=== PATIENT | female | born 1950 | race Caucasian/White ===

== ENCOUNTER 2019-10-19 01:17 | Emergency (ER) | payer MEDICARE ==
[~2019-10-19] VITALS: Ht 157.5 cm; Wt 63.5 kg
[~2019-10-19 01:17] MED LIST: ALBU90OI INH; AZIT250 PO; BENZ100A PO; CODGUAEL PO; Monodox100 MG PO; Nystatin15 GM TOP; PRED20 PO; Prednisone10 MG PO; Prednisone20 MG PO; SPACE CHAMBER1 EACH MC; SPACER IH; Zithromax250 MG PO
[2019-10-20] MEDS ORDERED: Omeprazole20 M1 PO ×2 (13:50)
== END 2019-10-19 03:12 | disposition home or self-care (01) ==
LOC: ER 01:17
DX: T18.128A Food in esophagus causing other injury, initial encounter (principal); F17.210 Nicotine dependence, cigarettes, uncomplicated
CPT/HCPCS: 96372; 99283-25; J1610

== ENCOUNTER 2019-10-19 15:24 | Observation (INO) | payer MEDICARE ==
[~2019-10-19] VITALS: Ht 157.5 cm; Wt 63.5 kg
--- NOTE | 2019-10-19 17:32 | NUR ---
RECEIVED PT FROM ER [facility]IA [facility]. History, Chart, Medications and Allergies reviewed before start of procedure. Lungs clear T/O to Auscultation. Patient States Post-Procedure ride home has been arranged.
--- NOTE | 2019-10-19 18:01 | NUR ---
10/19/19 180 ERICA MOYER SPOKE VIA PHONE WITH DR. WALLACE TO CONSULT REGARDING DEEP SEDATION. DR. WALLACE STATED IS WAS OKAY TO PROCEED WITH DEEP SEDATION WITH PROPOFOL.
--- NOTE | 2019-10-19 19:28 | NUR ---
OF NOW, 7 NICHOLS NETS HAVE BEEN USED FOR THE PROCEDURE. THE REASON FOR THIS NUMBER IS THAT THE NETS KEEP MALFUNCTIONING AND BREAKING.
--- NOTE | 2019-10-19 20:24 | NUR ---
PT IS BEING ADMITTED.
--- NOTE | 2019-10-19 20:46 | NUR ---
PT'S NEPHEW JOSE FRANCISCO NOTIFIED VIA PHONE REGARDING ADMISSION. PT WANTS HER KEYS GIVEN TO HIM SO HE CAN DRIVE HOME. PT STATES THERE IS NO PHONE AT HER HOME SO A NOTE WAS DICTATED TO NATALIA MORRIS FOR THE PT'S FAMILY. THE NOTE AND PT'S KEYS WERE TAKEN TO JOSE FRANCISCO IN THE PARKING LOT REQUESTED BY THE PT. THE HOSPITAL'S PHONE NUMBER WAS WRITTEN ON THE NOTE FOR THE FAMILY TO REACH THE PT TOMORROW.
--- NOTE | 2019-10-19 21:20 | NUR ---
ADMIT ORDERS PT ARRIVES FROM DAY SURGERY WITH NO WRITTEN OR ELECTRONIC ORDERS. NATALIA ASCENCIO ADVISES THAT TELEPHONE ORDERS WERE RECEIVED FROM DR. LANDAVERDE BUT THAT SHE NEEDED ASSISTANCE WITH ENTERING THEM INTO THE COMPUTER. PROVIDED ASSISTANCE AND NOTIFIED THE ER OF NEED TO PLACE PATIENT IN THE COMPUTER FOR FURTHER ADMISSION PROCESS.
--- NOTE | 2019-10-19 21:31 | NUR ---
PT SAFELY TRANSFERED TO PCU 1. RN AND RESPIRATORY THERAPY THERE ON ARRIVAL.
--- NOTE | 2019-10-19 23:36 | NUR ---
Admission/Assumed care Bedside report recieved from NATALIA Rodriguez from day surgery with patient arrival at 2111. Pt on 12L NRB at time of arrival, flow rate increased to 15L NRB at arrival, RT at bedside. Tachypnea in 30's noted, oxygenation at 91%. Pt appears lethargic but awake and able to be alert for converstaion. She does fall asleep frequently. Per report this is pt's "baseline". She is oriented, following all commands, VSS. Pt not tolerating NRB d/t clausterphobia. RT education provided to pt regarding need for oxygen support via BIPAP/CPAP. Pt agrees to airvo and is tolerating well. Albuteral Neb provided by RT per orders. Pt RR normalizing, breathing deeply and with even chest rise. Denies dyspnea now stating "i'm back to normal and I want to go home". Pt educated on amount of oxygen support needed to maintain oxygen levels in 90's. Hospitalist at bedside at approx 2330 for admission. Monitoring respiratory status closely, no acute concerns to note at this time. See admission assessment for detailed systems assessment.
--- NOTE | 2019-10-20 00:08 | NUR ---
UPDATE Pt shaking in bed, complaining of feeling "freezing", heating pad placed for pain on back at admission. Temperature 102.3 oral and temporal. Call placed to provider for orders. cooling measures in place at this time while waiting for provider to call back.
[2019-10-20 04:41] LABS: BASOPHILS ABSOLUTE AUTO 0.04 K/mm3 (0.00-0.23); BASOPHILS PERCENT AUTO 0 % (0-2); EOSINOPHILS PERCENT AUTO 0 % (0-6); Hematocrit 42.7 % (33.0-51.0); Hemoglobin 13.9 g/dL (11.5-16.0); IMMATURE GRAN ABSOLUTE AUTO 0.04 K/mm3 (0.00-0.10); IMMATURE GRAN PERCENT AUTO 0 % (0-1); LYMPHOCYTES ABSOLUTE AUTO 1.29 K/mm3 (0.84-5.20); LYMPHOCYTES PERCENT AUTO 9 % (21-46); MONOCYTES ABSOLUTE AUTO 0.93 K/mm3 (0.16-1.47); MONOCYTES PERCENT AUTO 7 % (4-13); Mean Corpuscular HGB 29.2 pg (26.0-34.0); Mean Corpuscular HGB Conc 32.6 g/dL (31.5-36.5); Mean Corpuscular Volume 90 fL (80-100); Mean Platelet Volume 9.6 fL (9.1-12.4); NEUTROPHILS ABSOLUTE AUTO 11.56 K/mm3 (1.96-9.15); NEUTROPHILS PERCENT AUTO 83 % (41-73); Platelet Count 268 K/mm3 (150-400); RDW Coefficient Variation 13.2 % (11.7-14.2); RDW Standard Deviation 43.8 fL (35.1-46.3); Red Blood Cell Count 4.76 M/mm3 (3.80-5.20); White Blood Cell Count 13.86 K/mm3 (4.00-11.30)
--- NOTE | 2019-10-20 04:48 | NUR ---
SHIFT SUMMARY Pt admitted to PCU 1 this shift. See admission note for details of pt condition upon admission. At 0000, pt with fever requiring cooling measures and tylenol UT administration to bring temp ultimately down to 98.8. After tylenol administration, pt able to sleep and upon waking from approx 2 hrs of rest, states "i feel like my head is clearer now", pt appears more alert, conversive, and comfortable. She is not complaining of pain as before and no longer shaking and sweating. ABx given per orders. BP noted to have steadily lowered this shift with SBP now 104; mentation intact and improved from initial assessment at admission, breathing at 22 BPM at this time and remains on Airvo at 40 LPM. Pt with wet, moist, productive cough. She states "this is normal for me", sputum production is thin, clear with some brown and red tinged spots. Pt has used bedpan this shift d/t respiratory effort and weakness, encouraging BSC for dayshift. Shes is strict NPO per orders.
[2019-10-20 05:06] LABS: Alanine Aminotransfer (ALT/SGP 16 U/L (12-78); Albumin, Blood 3.1 g/dL (3.4-5.0); Alk Phos 83 U/L (50-136); Anion Gap 6 mmol/L (6-16); Aspartate Aminotrans (AST/SGOT 7 U/L (12-37); Bilirubin, Total 1.2 mg/dL (0.1-1.0); Blood Urea Nitrogen 13 mg/dL (8-24); Bun/Creatinine Ratio 15.2 (12.0-20.0); CO2, Blood 30 mmol/L (21-32); Calcium, Blood 8.1 mg/dL (8.5-10.1); Chloride, Blood 106 mmol/L (98-108); Creatinine, Blood 0.86 mg/dL (0.40-1.00); Globulin, Blood 3.1 g/dL (2.2-4.0); Glomerular Filtration Rate >60 (60-); Glucose, Blood 88 mg/dL (70-99); Potassium, Blood 3.2 mmol/L (3.5-5.5); Sodium, Blood 142 mmol/L (136-145); Total Protein, Blood 6.2 g/dL (6.4-8.2)
[2019-10-20] MEDS ORDERED: Omeprazole20 M1 PO ×2 (13:50)
--- NOTE | 2019-10-20 15:18 | NUR ---
PT HAS BEEN DISCHARGED TO HOME, SHE IS NOT TOLERATING HER IV K+, CALL TO AND RECIEVED ORDER FOR ORAL. SHE TOOK THAT. WENT OVER PT INSTRUCTIONS WITH HER, SHE VERBALIZED UNDERSTANDING, IV REMOVED INTACT, LEFT VIA WHEELCHAIR WITH STUDENT NURSE IN ATTENDENCE.
== END 2019-10-20 15:21 | disposition home or self-care (01) ==
LOC: ER 15:24 → PCU 15:25 → ER 17:10 → PCU 21:37
PROVIDERS: Student in an Organized Health Care Education/Training Program; ADMIT Internal Medicine
PROC: 0DC58ZZ Extirpation of Matter from Esophagus, Via Natural or Artificial Opening Endoscopic (ICD-10-PCS; principal; 2019-10-19 17:30)
DX: T18.128A Food in esophagus causing other injury, initial encounter (principal); J96.01 Acute respiratory failure with hypoxia; K20.9 Esophagitis, unspecified; X58.XXXA Exposure to other specified factors, initial encounter; J43.9 Emphysema, unspecified; F17.210 Nicotine dependence, cigarettes, uncomplicated
CPT/HCPCS: 36415; 80053; 85025; 94640; 99283; A9270; C9113; J1610; J1650; J2405; J2704; J3480; J7120

== ENCOUNTER → 2020-03-25 | Outpatient (CLI) | payer MEDICARE, OTHER ==
[~2020-03-25] MED LIST changes: +Omeprazole20 M1 PO
== END | disposition home or self-care (01) ==
LOC: PLD 16:13 → LAB SHORT 16:13
DX: L60.2 Onychogryphosis (principal); B35.1 Tinea unguium
CPT/HCPCS: 88305; 88312

== ENCOUNTER → 2020-03-25 | Outpatient (CLI) | payer MEDICARE, OTHER | LOC: LAB 15:07 → LAB SHORT 15:07 | DX: B35.3 Tinea pedis (principal) | CPT/HCPCS: 87210 ==

== ENCOUNTER 2021-06-09 20:25 | Emergency (ER) | payer OTHER ==
[~2021-06-09] VITALS: Ht 157.5 cm; Wt 97.5 kg
[2021-06-09 21:22] LABS: BASOPHILS PERCENT AUTO 1 % (0-2); EOSINOPHILS ABSOLUTE AUTO 0.28 K/mm3 (0.00-0.68); EOSINOPHILS PERCENT AUTO 2 % (0-6); Hematocrit 47.1 % (33.0-51.0); Hemoglobin 15.6 g/dL (11.5-16.0); IMMATURE GRAN ABSOLUTE AUTO 0.09 K/mm3 (0.00-0.10); IMMATURE GRAN PERCENT AUTO 1 % (0-1); LYMPHOCYTES ABSOLUTE AUTO 3.76 K/mm3 (0.84-5.20); LYMPHOCYTES PERCENT AUTO 27 % (21-46); MONOCYTES ABSOLUTE AUTO 0.94 K/mm3 (0.16-1.47); MONOCYTES PERCENT AUTO 7 % (4-13); Mean Corpuscular HGB 28.6 pg (26.0-34.0); Mean Corpuscular HGB Conc 33.1 g/dL (31.5-36.5); Mean Corpuscular Volume 86 fL (80-100); Mean Platelet Volume 9.3 fL (9.1-12.4); NEUTROPHILS ABSOLUTE AUTO 8.56 K/mm3 (1.96-9.15); NEUTROPHILS PERCENT AUTO 62 % (41-73); Platelet Count 425 K/mm3 (150-400); RDW Coefficient Variation 13.6 % (11.7-14.2); RDW Standard Deviation 42.8 fL (35.1-46.3); Red Blood Cell Count 5.46 M/mm3 (3.80-5.20); White Blood Cell Count 13.73 K/mm3 (4.00-11.30)
[2021-06-09 21:32] LABS: Bun/Creatinine Ratio 17.9 (12.0-20.0); Calcium, Blood 9.2 mg/dL (8.5-10.1); Creatinine, Blood 0.95 mg/dL (0.40-1.00); Magnesium, Blood 2.3 mg/dL (1.6-2.4); Potassium, Blood 3.8 mmol/L (3.5-5.5)
[2021-06-09] MEDS ORDERED: VALIUM PO (22:16)
== END 2021-06-09 22:30 | disposition home or self-care (01) ==
LOC: ER 20:25
PROVIDERS: Emergency Medicine
DX: M62.838 Other muscle spasm (principal); T38.3X5A Adverse effect of insulin and oral hypoglycemic [antidiabetic] drugs, initial encounter; J43.9 Emphysema, unspecified; E11.9 Type 2 diabetes mellitus without complications; I50.9 Heart failure, unspecified; F17.210 Nicotine dependence, cigarettes, uncomplicated; Z79.899 Other long term (current) drug therapy
CPT/HCPCS: 80048; 83735; 85025; A9270

== ENCOUNTER 2022-06-20 21:22 | Emergency (ER) | payer OTHER ==
[~2022-06-20] VITALS: Ht 157.5 cm; Wt 90.7 kg
[~2022-06-20 21:22] MED LIST changes: +ACET500 PO; +BREZTRI AEROS10.7 GM; +DIAZEPAM2 M2 PO; +FUROSEMIDE40 MG PO; +IBUP400 PO; +JARDIANCE10 MG PO; +Potassium Chlo20 ME1 PO; +VALIUM PO; +Ventolin/Prove6.7 GM
[2022-06-20 21:47] LABS: BASOPHILS ABSOLUTE AUTO 0.11 K/mm3 (0.00-0.23); BASOPHILS PERCENT AUTO 1 % (0-2); EOSINOPHILS ABSOLUTE AUTO 0.19 K/mm3 (0.00-0.68); EOSINOPHILS PERCENT AUTO 2 % (0-6); Hematocrit 44.8 % (33.0-51.0); Hemoglobin 15.2 g/dL (11.5-16.0); IMMATURE GRAN ABSOLUTE AUTO 0.07 K/mm3 (0.00-0.10); IMMATURE GRAN PERCENT AUTO 1 % (0-1); LYMPHOCYTES ABSOLUTE AUTO 4.55 K/mm3 (0.84-5.20); LYMPHOCYTES PERCENT AUTO 39 % (21-46); MONOCYTES ABSOLUTE AUTO 0.82 K/mm3 (0.16-1.47); MONOCYTES PERCENT AUTO 7 % (4-13); Mean Corpuscular HGB 30.1 pg (26.0-34.0); Mean Corpuscular HGB Conc 33.9 g/dL (31.5-36.5); Mean Corpuscular Volume 89 fL (80-100); NEUTROPHILS ABSOLUTE AUTO 5.88 K/mm3 (1.96-9.15); NEUTROPHILS PERCENT AUTO 51 % (41-73); Platelet Count 338 K/mm3 (150-400); RDW Coefficient Variation 14.7 % (11.7-14.2); RDW Standard Deviation 48.4 fL (35.1-46.3); Red Blood Cell Count 5.05 M/mm3 (3.80-5.20); White Blood Cell Count 11.62 K/mm3 (4.00-11.30)
[2022-06-20 22:07] LABS: Albumin, Blood 3.2 g/dL (3.4-5.0); Albumin/Globulin Ratio 0.9 (0.8-1.8); Bilirubin, Total 0.3 mg/dL (0.1-1.0); Bun/Creatinine Ratio 16.5 (12.0-20.0); Calcium, Blood 8.8 mg/dL (8.5-10.1); Creatinine, Blood 1.09 mg/dL (0.40-1.00); Globulin, Blood 3.7 g/dL (2.2-4.0); Potassium, Blood 3.8 mmol/L (3.5-5.5); Total Protein, Blood 6.9 g/dL (6.4-8.2)
[2022-06-20] MEDS ORDERED: ONDA4 PO (23:21)
[2022-06-20] MEDS ORDERED: Percocet 5-3251 EACH PO (23:22)
[2022-06-20] MEDS ORDERED: PERCOCET 10-321 EA10 PO (23:26)
== END 2022-06-20 23:32 | disposition home or self-care (01) ==
LOC: ER 21:22
PROVIDERS: Emergency Medicine
DX: K80.50 Calculus of bile duct without cholangitis or cholecystitis without obstruction (principal); J43.9 Emphysema, unspecified; I50.9 Heart failure, unspecified; F17.210 Nicotine dependence, cigarettes, uncomplicated; Z88.8 Allergy status to other drugs, medicaments and biological substances; Z79.899 Other long term (current) drug therapy
CPT/HCPCS: 36415; 71045; 76705; 80053; 83690; 84484; 85025; 93005; 93010; 94640; 94664; A9270; J2270; J2405

== ENCOUNTER 2023-02-04 18:34 | Emergency (ER) | payer OTHER ==
[~2023-02-04] VITALS: Ht 157.5 cm; Wt 95.2 kg
[~2023-02-04 18:34] MED LIST changes: +ONDA4 PO; +PERCOCET 10-321 EA10 PO; +Percocet 5-3251 EACH PO
[2023-02-04 19:16] VITALS: BP 119/71
== END 2023-02-04 21:03 | disposition home or self-care (01) ==
LOC: ER 18:34
DX: I50.9 Heart failure, unspecified (principal); R60.0 Localized edema; M54.30 Sciatica, unspecified side; Z88.8 Allergy status to other drugs, medicaments and biological substances; Z79.899 Other long term (current) drug therapy; J43.9 Emphysema, unspecified; E11.9 Type 2 diabetes mellitus without complications; F17.210 Nicotine dependence, cigarettes, uncomplicated
CPT/HCPCS: 96372; 99283-25; J1885

== ENCOUNTER → 2023-03-26 | Outpatient (CLI) | payer OTHER ==
[2023-03-26 17:32] LABS: Anion Gap 5 mmol/L (6-16); Blood Urea Nitrogen 13 mg/dL (8-24); Bun/Creatinine Ratio 13.6 (12.0-20.0); CHOL/HDL RATIO 4.3; CO2, Blood 30 mmol/L (21-32); Calcium, Blood 9.4 mg/dL (8.5-10.1); Chloride, Blood 102 mmol/L (98-108); Cholesterol 249 mg/dL (50-200); Creatinine, Blood 0.95 mg/dL (0.40-1.00); Glomerular Filtration Rate 64 (60-); Glucose, Blood 103 mg/dL (70-99); HDL Cholesterol 58 mg/dL (>39); LDL/HDL RATIO 2.6; Low Density Lipoprotein Chol 151 mg/dL (0-110); Potassium, Blood 3.1 mmol/L (3.5-5.5); Sodium, Blood 137 mmol/L (136-145); Triglycerides 202 mg/dL (30-160); Very Low Density Lipoprot Chol 40 mg/dL (6-32)
== END | disposition home or self-care (01) ==
LOC: LAB SHORT 15:51 → LAB 15:51
PROVIDERS: Nurse Practitioner Family
DX: E11.42 Type 2 diabetes mellitus with diabetic polyneuropathy (principal); E11.22 Type 2 diabetes mellitus with diabetic chronic kidney disease; E11.51 Type 2 diabetes mellitus with diabetic peripheral angiopathy without gangrene; E11.69 Type 2 diabetes mellitus with other specified complication
CPT/HCPCS: 80048; 80061

== ENCOUNTER 2023-04-07 06:25 | Day surgery (SDC) | payer OTHER ==
[2023-04-07] VITALS (7 sets, daily range): BP systolic 108–166; BP diastolic 69–108
[~2023-04-07] VITALS: Ht 157.5 cm; Wt 102.0 kg
[~2023-04-07 06:25] MED LIST changes: +ALDACTONE100 MG PO
[2023-04-07] MEDS ORDERED: Crestor20 MG PO (08:46)
--- NOTE | 2023-04-07 10:00 | NUR ---
4CC OF AIR REMOVED FROM R RADIAL TR BAND. BLEEDING NOTED. REINFLATED TR BAND. NO LONGER BLEEDING OR HEMATOMA. VSS. NADN. CALL LIGHT WITHIN REACH.
--- NOTE | 2023-04-07 11:16 | NUR ---
AIR FULLY DEFLATED FROM R RADIAL TR BAND. NO BLEEDING OR HEMATOMA NOTED. VSS. PT AND CAREGIVER, CASSANDRA VERABLIZES UNDERSTANDING WRITTEN AND VERBAL INSTRUCTIONS. DENIES QUESTIONS.
--- NOTE | 2023-04-07 11:31 | NUR ---
PT DRESSES SELF WITH MINIMAL ASSISTANCE. TOLERATES WELL. VSS. NADN. PT TR BAND REMOVED. DOT DRESSING, SPLINT, & SLING APPLIED. IV DC'D. CATH INTACT. PRESSURE DSG APPLIED. NO BLEEDING NOTED. PT WILL DC TO HOME VIA WC BY CAREGIVER
[2023-04-07] MEDS ORDERED: Norco 5-325 Ta1 EACH PO (20:50)
== END 2023-04-07 11:40 | disposition home or self-care (01) ==
LOC: MHTC 06:25
DX: Z01.810 Encounter for preprocedural cardiovascular examination (principal); I25.10 Atherosclerotic heart disease of native coronary artery without angina pectoris; I25.82 Chronic total occlusion of coronary artery; I35.0 Nonrheumatic aortic (valve) stenosis; I13.0 Hypertensive heart and chronic kidney disease with heart failure and stage 1 through stage 4 chronic kidney disease, or unspecified chronic kidney disease; E11.22 Type 2 diabetes mellitus with diabetic chronic kidney disease; N18.31 Chronic kidney disease, stage 3a; I50.32 Chronic diastolic (congestive) heart failure; E66.01 Morbid (severe) obesity due to excess calories; Z68.41 Body mass index [BMI] 40.0-44.9, adult; J43.9 Emphysema, unspecified; Z88.8 Allergy status to other drugs, medicaments and biological substances; R10.11 Right upper quadrant pain; E11.9 Type 2 diabetes mellitus without complications; F17.210 Nicotine dependence, cigarettes, uncomplicated; Z79.899 Other long term (current) drug therapy
CPT/HCPCS: 76937; 80053; 83690; 85025; 93454; 96374; 99152; 99153; 99284-25; A9270; C1769; C1887; C1894; J1644; J1885; J2250; J3010; J7030; J7050; Q9967

== ENCOUNTER 2023-04-08 00:59 | Emergency (ER) | payer OTHER ==
[~2023-04-08] VITALS: Ht 157.5 cm; Wt 90.7 kg
[~2023-04-08 00:59] MED LIST changes: +Crestor20 MG PO; +Norco 5-325 Ta1 EACH PO
[2023-04-08 01:30] VITALS: BP 124/67
== END 2023-04-08 04:40 | disposition home or self-care (01) ==
LOC: ER 00:59
DX: R10.11 Right upper quadrant pain (principal); J43.9 Emphysema, unspecified; E11.9 Type 2 diabetes mellitus without complications; I50.9 Heart failure, unspecified; F17.210 Nicotine dependence, cigarettes, uncomplicated
CPT/HCPCS: 93005; 93010; 99284-25; A9270

== ENCOUNTER → 2023-09-02 | Outpatient (CLI) | payer OTHER ==
[~2023-09-02] MED LIST changes: +ALBU2.5V5 INH; +DERMACINRX LID1 EACH TOP; +Robaxin750 MG PO
[2023-09-02 18:05] LABS: Bun/Creatinine Ratio 13.8 (12.0-20.0); Calcium, Blood 9.3 mg/dL (8.5-10.1); Creatinine, Blood 0.87 mg/dL (0.40-1.00); Potassium, Blood 3.4 mmol/L (3.5-5.5)
== END ==
LOC: LAB 16:16 → LAB SHORT 16:16
PROVIDERS: Nurse Practitioner Family
DX: R60.9 Edema, unspecified (principal)
CPT/HCPCS: 80048

== ENCOUNTER 2023-09-10 12:01 | Emergency (ER) | payer OTHER ==
[~2023-09-10] VITALS: Ht 165.1 cm; Wt 72.6 kg
[~2023-09-10 12:01] MED LIST changes: -ALBU2.5V5 INH; -DERMACINRX LID1 EACH TOP; -Robaxin750 MG PO
[2023-09-10] MEDS ORDERED: Ipratropium/Albuterol SulF 2.5-0.5MG/3 ML Amp INH ONE (12:20)
[2023-09-10] MEDS ORDERED: FentaNYL Citrate 50 MCG/ML 2 ML Injection IV ONE (13:00)
[2023-09-10 13:06] LABS: BASOPHILS ABSOLUTE AUTO 0.12 K/mm3 (0.00-0.23); BASOPHILS PERCENT AUTO 1 % (0-2); EOSINOPHILS ABSOLUTE AUTO 0.27 K/mm3 (0.00-0.68); EOSINOPHILS PERCENT AUTO 2 % (0-6); Hemoglobin 16.4 g/dL (11.5-16.0); IMMATURE GRAN ABSOLUTE AUTO 0.09 K/mm3 (0.00-0.10); IMMATURE GRAN PERCENT AUTO 1 % (0-1); LYMPHOCYTES ABSOLUTE AUTO 3.45 K/mm3 (0.84-5.20); LYMPHOCYTES PERCENT AUTO 28 % (21-46); MONOCYTES ABSOLUTE AUTO 1.04 K/mm3 (0.16-1.47); MONOCYTES PERCENT AUTO 9 % (4-13); Mean Corpuscular HGB 29.1 pg (26.0-34.0); Mean Corpuscular HGB Conc 33.5 g/dL (31.5-36.5); Mean Corpuscular Volume 87 fL (80-100); Mean Platelet Volume 8.8 fL (9.1-12.4); NEUTROPHILS ABSOLUTE AUTO 7.25 K/mm3 (1.96-9.15); NEUTROPHILS PERCENT AUTO 59 % (41-73); Platelet Count 392 K/mm3 (150-400); RDW Coefficient Variation 14.2 % (11.7-14.2); RDW Standard Deviation 45.6 fL (35.1-46.3); Red Blood Cell Count 5.63 M/mm3 (3.80-5.20); White Blood Cell Count 12.22 K/mm3 (4.00-11.30)
[2023-09-10 13:28] VITALS: BP 145/115
[2023-09-10 13:28] LABS: Albumin, Blood 3.8 g/dL (3.4-5.0); Albumin/Globulin Ratio 0.9 (0.8-1.8); Bilirubin, Total 0.7 mg/dL (0.1-1.0); Bun/Creatinine Ratio 17.9 (12.0-20.0); Calcium, Blood 9.7 mg/dL (8.5-10.1); Creatinine, Blood 0.84 mg/dL (0.40-1.00); Globulin, Blood 4.2 g/dL (2.2-4.0); Magnesium, Blood 2.5 mg/dL (1.6-2.4); Potassium, Blood 3.8 mmol/L (3.5-5.5)
[2023-09-10 13:31] LABS: Influenza A, PCR NEGATIVE (NEGATIVE); Influenza B, PCR NEGATIVE (NEGATIVE); Resp Syncytial Virus, PCR NEGATIVE (NEGATIVE); SARS-Cov-2 (COVID-19) PCR, MMC NEGATIVE (NEGATIVE)
== END 2023-09-10 15:17 | disposition home or self-care (01) ==
LOC: ER 12:01
PROVIDERS: Physician Assistant
DX: J44.1 Chronic obstructive pulmonary disease with (acute) exacerbation (principal); F17.210 Nicotine dependence, cigarettes, uncomplicated; E11.9 Type 2 diabetes mellitus without complications; I50.9 Heart failure, unspecified; Z79.51 Long term (current) use of inhaled steroids; Z79.899 Other long term (current) drug therapy; Z88.8 Allergy status to other drugs, medicaments and biological substances
CPT/HCPCS: 0241U; 71046; 80053; 83735; 85025; 94640; 94664; J3010

== ENCOUNTER 2023-09-12 16:30 | Emergency (ER) | payer OTHER ==
[~2023-09-12] VITALS: Ht 165.1 cm; Wt 81.7 kg
[2023-09-12] MEDS ORDERED: Ketorolac Tromethamine 15mg Vial IV ONE (17:05)
[2023-09-12] MEDS ORDERED: Morphine Sulfate 10 MG/ML 1MLSYR IV ONE (17:05)
[2023-09-12] MEDS ORDERED: Lidocaine 4% 1 Patch TOP ONE (17:05)
[2023-09-12 17:33] LABS: BASOPHILS ABSOLUTE AUTO 0.11 K/mm3 (0.00-0.23); BASOPHILS PERCENT AUTO 1 % (0-2); EOSINOPHILS ABSOLUTE AUTO 0.18 K/mm3 (0.00-0.68); EOSINOPHILS PERCENT AUTO 1 % (0-6); Hematocrit 46.8 % (33.0-51.0); Hemoglobin 15.5 g/dL (11.5-16.0); IMMATURE GRAN ABSOLUTE AUTO 0.09 K/mm3 (0.00-0.10); IMMATURE GRAN PERCENT AUTO 1 % (0-1); LYMPHOCYTES ABSOLUTE AUTO 3.16 K/mm3 (0.84-5.20); LYMPHOCYTES PERCENT AUTO 20 % (21-46); MONOCYTES ABSOLUTE AUTO 1.05 K/mm3 (0.16-1.47); MONOCYTES PERCENT AUTO 7 % (4-13); Mean Corpuscular HGB 28.9 pg (26.0-34.0); Mean Corpuscular HGB Conc 33.1 g/dL (31.5-36.5); Mean Corpuscular Volume 87 fL (80-100); Mean Platelet Volume 9.5 fL (9.1-12.4); NEUTROPHILS ABSOLUTE AUTO 11.42 K/mm3 (1.96-9.15); NEUTROPHILS PERCENT AUTO 71 % (41-73); Platelet Count 362 K/mm3 (150-400); RDW Coefficient Variation 14.1 % (11.7-14.2); RDW Standard Deviation 45.1 fL (35.1-46.3); Red Blood Cell Count 5.37 M/mm3 (3.80-5.20); White Blood Cell Count 16.01 K/mm3 (4.00-11.30)
[2023-09-12 18:05] LABS: Albumin, Blood 3.6 g/dL (3.4-5.0); Albumin/Globulin Ratio 0.9 (0.8-1.8); Bilirubin, Total 0.6 mg/dL (0.1-1.0); Calcium, Blood 9.6 mg/dL (8.5-10.1); Creatinine, Blood 0.9 mg/dL (0.40-1.00); Globulin, Blood 4.1 g/dL (2.2-4.0); Potassium, Blood 3.4 mmol/L (3.5-5.5); Total Protein, Blood 7.7 g/dL (6.4-8.2)
[2023-09-12 18:09] LABS: Influenza A, PCR NEGATIVE (NEGATIVE); Influenza B, PCR NEGATIVE (NEGATIVE); Resp Syncytial Virus, PCR NEGATIVE (NEGATIVE); SARS-Cov-2 (COVID-19) PCR, MMC NEGATIVE (NEGATIVE)
[2023-09-12] MEDS ORDERED: MethylPREDNISolone Sod Succ 125 MG Vial IV ONE (18:45)
[2023-09-12] MEDS ORDERED: Albuterol 2.5 MG/3 ML VIAL INH SCH (18:50)
[2023-09-12] MEDS ORDERED: CefTRIAXone Sodium 1,000 MG in NS 100 ML IV ONE (18:50)
[2023-09-12 20:45] VITALS: BP 121/77
[2023-09-12 20:45] LABS: Source, Urine Clean Catch
[2023-09-12 20:52] LABS: Bilirubin, Urine Neg (Neg); Blood, Urine 2+ (Neg); Glucose Qualitative, Urine 4+ (Neg); Ketones, Urine Neg (Neg); Leukocyte Esterase, Urine Neg (Neg); Nitrite, Urine Neg (Neg); Protein, Urine Neg (Neg); Specific Gravity, Urine 1.015 (1.003-1.022); Urobilinogen, Urine NORM (Normal)
[2023-09-12 20:57] LABS: Appearance, Urine Clear (Clear); Color, Urine Yellow (P-Yellow)
[2023-09-12 21:00] LABS: Bacteria Rare /hpf; Red Blood Cells, Urine 0-2 /hpf (0-2); Squamous Epithelial Cells Rare /hpf (Few); White Blood Cells, Urine Not Seen /hpf (0-5)
[2023-09-12] MEDS ORDERED: Robaxin750 MG PO (21:14)
[2023-09-12] MEDS ORDERED: ALBU2.5V5 INH (21:14)
[2023-09-12] MEDS ORDERED: DERMACINRX LID1 EACH TOP (21:14)
== END 2023-09-12 21:39 | disposition home or self-care (01) ==
LOC: ER 16:30
PROVIDERS: Student in an Organized Health Care Education/Training Program
DX: M54.9 Dorsalgia, unspecified (principal); R09.02 Hypoxemia; J43.9 Emphysema, unspecified; Z87.891 Personal history of nicotine dependence; E11.9 Type 2 diabetes mellitus without complications; I50.9 Heart failure, unspecified; Z79.51 Long term (current) use of inhaled steroids; Z79.899 Other long term (current) drug therapy; Z88.5 Allergy status to narcotic agent; Z88.8 Allergy status to other drugs, medicaments and biological substances
CPT/HCPCS: 0241U; 71046; 80053; 81001; 85025; 94644; 94664; 96365-59; 96375-59; 99284-25; A9270; J0696; J1885; J2270; J2930

== ENCOUNTER → 2023-09-23 | Outpatient (CLI) | payer OTHER ==
[~2023-09-23] MED LIST changes: +ALBU2.5V5 INH; +DERMACINRX LID1 EACH TOP; +Robaxin750 MG PO
[2023-09-23 19:14] LABS: Bun/Creatinine Ratio 18.9 (12.0-20.0); Calcium, Blood 9.3 mg/dL (8.5-10.1); Creatinine, Blood 0.85 mg/dL (0.40-1.00); Potassium, Blood 3.2 mmol/L (3.5-5.5)
== END | disposition home or self-care (01) ==
LOC: LAB 17:20 → LAB SHORT 17:20
PROVIDERS: Nurse Practitioner Family
DX: I50.32 Chronic diastolic (congestive) heart failure (principal); E87.6 Hypokalemia
CPT/HCPCS: 80048

== ENCOUNTER 2023-11-16 13:56 | Emergency (ER) | payer OTHER ==
[~2023-11-16] VITALS: Ht 160 cm; Wt 93.9 kg
[~2023-11-16 13:56] MED LIST changes: +Magic Bullet10 MG PR; +Magnesium Citr296 ML PO
[2023-11-16] MEDS ORDERED: ASPI81CH PO (14:33)
[2023-11-16] MEDS ORDERED: NS 1,000 ML IV SCH (14:45)
[2023-11-16] MEDS ORDERED: Morphine Sulfate 4 MG/1 ML Injection IV ONE (14:45)
[2023-11-16] MEDS ORDERED: Ondansetron HCl 2 MG / ML 2ML Vial IV ONE (14:45)
[2023-11-16 15:02] LABS: BASOPHILS ABSOLUTE AUTO 0.13 K/mm3 (0.00-0.23); BASOPHILS PERCENT AUTO 1 % (0-2); EOSINOPHILS ABSOLUTE AUTO 0.16 K/mm3 (0.00-0.68); EOSINOPHILS PERCENT AUTO 1 % (0-6); Hematocrit 45.2 % (33.0-51.0); Hemoglobin 15.3 g/dL (11.5-16.0); IMMATURE GRAN ABSOLUTE AUTO 0.13 K/mm3 (0.00-0.10); IMMATURE GRAN PERCENT AUTO 1 % (0-1); LYMPHOCYTES ABSOLUTE AUTO 3.79 K/mm3 (0.84-5.20); LYMPHOCYTES PERCENT AUTO 29 % (21-46); MONOCYTES ABSOLUTE AUTO 0.91 K/mm3 (0.16-1.47); MONOCYTES PERCENT AUTO 7 % (4-13); Mean Corpuscular HGB 29.4 pg (26.0-34.0); Mean Corpuscular HGB Conc 33.8 g/dL (31.5-36.5); Mean Corpuscular Volume 87 fL (80-100); Mean Platelet Volume 9.3 fL (9.1-12.4); NEUTROPHILS ABSOLUTE AUTO 7.99 K/mm3 (1.96-9.15); NEUTROPHILS PERCENT AUTO 61 % (41-73); Platelet Count 428 K/mm3 (150-400); RDW Coefficient Variation 13.9 % (11.7-14.2); RDW Standard Deviation 43.6 fL (35.1-46.3); White Blood Cell Count 13.11 K/mm3 (4.00-11.30)
[2023-11-16] MEDS ORDERED: HYDROmorphone HCl/Pf 1MG SYR IV ONE ×2 (15:15→16:45)
[2023-11-16 15:22] LABS: Albumin, Blood 3.3 g/dL (3.4-5.0); Albumin/Globulin Ratio 0.8 (0.8-1.8); Bilirubin, Total 0.5 mg/dL (0.1-1.0); Bun/Creatinine Ratio 13.4 (12.0-20.0); Calcium, Blood 9.1 mg/dL (8.5-10.1); Creatinine, Blood 0.9 mg/dL (0.40-1.00); Globulin, Blood 4.1 g/dL (2.2-4.0); Total Protein, Blood 7.4 g/dL (6.4-8.2)
[2023-11-16] MEDS ORDERED: LORazepam 2 MG/ML 1ML Injection IV ONE (16:55)
[2023-11-16] MEDS ORDERED: Ipratropium/Albuterol SulF 2.5-0.5MG/3 ML Amp INH ONE (17:30)
[2023-11-16] MEDS ORDERED: POTCHL20ER PO (19:57)
[2023-11-16 20:00] VITALS: BP 124/80
[2023-11-16] MEDS ORDERED: Ketorolac Tromethamine 30mg Vial IV ONE (20:00)
[2023-11-16] MEDS ORDERED: Potassium Chloride 20 MEQ TabCR PO ONE (20:00)
== END 2023-11-16 20:10 | disposition home or self-care (01) ==
LOC: ER 13:56
PROVIDERS: Emergency Medicine
DX: K80.70 Calculus of gallbladder and bile duct without cholecystitis without obstruction (principal); E87.6 Hypokalemia; J44.9 Chronic obstructive pulmonary disease, unspecified
CPT/HCPCS: 74177; 76705; 80053; 83690; 84484; 85025; 93005; 93010; 94640; 94664; 96361; 96374-59; 96375; 96376; 99285-25; A9270; J1170; J1885; J2060; J2270; J2405; J7030; Q9967

== ENCOUNTER 2023-11-20 06:04 | Emergency (ER) | payer OTHER ==
[~2023-11-20] VITALS: Ht 160 cm; Wt 83.9 kg
[~2023-11-20 06:04] MED LIST changes: +ASPI81CH PO; +POTCHL20ER PO
[2023-11-20] MEDS ORDERED: Ketorolac Tromethamine 15mg Vial IV ONE (06:15)
[2023-11-20] MEDS ORDERED: Morphine Sulfate 4 MG/1 ML Injection IV ONE (06:15)
[2023-11-20 06:46] LABS: BASOPHILS ABSOLUTE AUTO 0.13 K/mm3 (0.00-0.23); BASOPHILS PERCENT AUTO 1 % (0-2); EOSINOPHILS ABSOLUTE AUTO 0.14 K/mm3 (0.00-0.68); EOSINOPHILS PERCENT AUTO 1 % (0-6); Hematocrit 46.7 % (33.0-51.0); Hemoglobin 15.3 g/dL (11.5-16.0); IMMATURE GRAN PERCENT AUTO 1 % (0-1); LYMPHOCYTES ABSOLUTE AUTO 2.28 K/mm3 (0.84-5.20); LYMPHOCYTES PERCENT AUTO 19 % (21-46); MONOCYTES PERCENT AUTO 7 % (4-13); Mean Corpuscular HGB 28.9 pg (26.0-34.0); Mean Corpuscular HGB Conc 32.8 g/dL (31.5-36.5); Mean Corpuscular Volume 88 fL (80-100); Mean Platelet Volume 9.7 fL (9.1-12.4); NEUTROPHILS ABSOLUTE AUTO 8.55 K/mm3 (1.96-9.15); NEUTROPHILS PERCENT AUTO 71 % (41-73); Platelet Count 339 K/mm3 (150-400); RDW Coefficient Variation 14.2 % (11.7-14.2); RDW Standard Deviation 45.6 fL (35.1-46.3)
[2023-11-20 07:09] LABS: Albumin, Blood 3.3 g/dL (3.4-5.0); Albumin/Globulin Ratio 0.8 (0.8-1.8); Bilirubin, Total 0.7 mg/dL (0.1-1.0); Bun/Creatinine Ratio 14.7 (12.0-20.0); Calcium, Blood 9.5 mg/dL (8.5-10.1); Creatinine, Blood 0.88 mg/dL (0.40-1.00); Globulin, Blood 4.4 g/dL (2.2-4.0); Potassium, Blood 5.1 mmol/L (3.5-5.5); Total Protein, Blood 7.7 g/dL (6.4-8.2)
[2023-11-20] MEDS ORDERED: IBUP600 PO (07:29)
[2023-11-20] MEDS ORDERED: CYCL10 PO (07:29)
[2023-11-20 08:00] VITALS: BP 113/65
== END 2023-11-20 08:56 | disposition home or self-care (01) ==
LOC: ER 06:04
PROVIDERS: Emergency Medicine
DX: M54.50 Low back pain, unspecified (principal); J43.9 Emphysema, unspecified; E11.9 Type 2 diabetes mellitus without complications; J44.9 Chronic obstructive pulmonary disease, unspecified; I50.9 Heart failure, unspecified; Z88.8 Allergy status to other drugs, medicaments and biological substances; Z88.5 Allergy status to narcotic agent; Z79.899 Other long term (current) drug therapy; Z79.82 Long term (current) use of aspirin; F17.210 Nicotine dependence, cigarettes, uncomplicated
CPT/HCPCS: 80053; 85025; 96374; 96375; 99284-25; J1885; J2270

== ENCOUNTER → 2023-12-06 | Outpatient (CLI) | payer OTHER ==
[~2023-12-06] MED LIST changes: +CYCL10 PO; +IBUP600 PO
[2023-12-06 16:48] LABS: BASOPHILS ABSOLUTE AUTO 0.16 K/mm3 (0.00-0.23); BASOPHILS PERCENT AUTO 1 % (0-2); EOSINOPHILS ABSOLUTE AUTO 0.24 K/mm3 (0.00-0.68); EOSINOPHILS PERCENT AUTO 2 % (0-6); Hematocrit 45.6 % (33.0-51.0); Hemoglobin 15.1 g/dL (11.5-16.0); IMMATURE GRAN ABSOLUTE AUTO 0.21 K/mm3 (0.00-0.10); IMMATURE GRAN PERCENT AUTO 2 % (0-1); LYMPHOCYTES ABSOLUTE AUTO 3.43 K/mm3 (0.84-5.20); LYMPHOCYTES PERCENT AUTO 28 % (21-46); MONOCYTES ABSOLUTE AUTO 0.99 K/mm3 (0.16-1.47); MONOCYTES PERCENT AUTO 8 % (4-13); Mean Corpuscular HGB 28.9 pg (26.0-34.0); Mean Corpuscular HGB Conc 33.1 g/dL (31.5-36.5); Mean Corpuscular Volume 87 fL (80-100); Mean Platelet Volume 9.9 fL (9.1-12.4); NEUTROPHILS ABSOLUTE AUTO 7.41 K/mm3 (1.96-9.15); NEUTROPHILS PERCENT AUTO 60 % (41-73); Platelet Count 342 K/mm3 (150-400); RDW Coefficient Variation 13.9 % (11.7-14.2); RDW Standard Deviation 44.4 fL (35.1-46.3); Red Blood Cell Count 5.23 M/mm3 (3.80-5.20); White Blood Cell Count 12.44 K/mm3 (4.00-11.30)
[2023-12-06 17:02] LABS: Bun/Creatinine Ratio 19.1 (12.0-20.0); Calcium, Blood 8.8 mg/dL (8.5-10.1); Creatinine, Blood 1.15 mg/dL (0.40-1.00); Potassium, Blood 3.8 mmol/L (3.5-5.5)
== END ==
LOC: LAB SHORT 10:45 → LAB 10:45
PROVIDERS: Nurse Practitioner Family
DX: R60.9 Edema, unspecified (principal); L03.115 Cellulitis of right lower limb
CPT/HCPCS: 80048; 85025

== ENCOUNTER 2023-12-12 14:05 | Emergency (ER) | payer OTHER ==
[~2023-12-12] VITALS: Ht 157.5 cm; Wt 90.7 kg
[2023-12-12] MEDS ORDERED: Ketorolac Tromethamine 15mg Vial IV ONE (14:15)
[2023-12-12] MEDS ORDERED: HYDROmorphone HCl/Pf 1MG SYR IV ONE (14:15)
[2023-12-12 14:34] LABS: BASOPHILS ABSOLUTE AUTO 0.14 K/mm3 (0.00-0.23); BASOPHILS PERCENT AUTO 1 % (0-2); EOSINOPHILS ABSOLUTE AUTO 0.26 K/mm3 (0.00-0.68); EOSINOPHILS PERCENT AUTO 2 % (0-6); Hematocrit 45.5 % (33.0-51.0); Hemoglobin 15.6 g/dL (11.5-16.0); IMMATURE GRAN ABSOLUTE AUTO 0.23 K/mm3 (0.00-0.10); IMMATURE GRAN PERCENT AUTO 2 % (0-1); LYMPHOCYTES ABSOLUTE AUTO 3.83 K/mm3 (0.84-5.20); LYMPHOCYTES PERCENT AUTO 31 % (21-46); MONOCYTES ABSOLUTE AUTO 0.83 K/mm3 (0.16-1.47); MONOCYTES PERCENT AUTO 7 % (4-13); Mean Corpuscular HGB 29.1 pg (26.0-34.0); Mean Corpuscular HGB Conc 34.3 g/dL (31.5-36.5); Mean Corpuscular Volume 85 fL (80-100); NEUTROPHILS ABSOLUTE AUTO 7.08 K/mm3 (1.96-9.15); NEUTROPHILS PERCENT AUTO 57 % (41-73); Platelet Count 374 K/mm3 (150-400); RDW Coefficient Variation 13.9 % (11.7-14.2); RDW Standard Deviation 43.1 fL (35.1-46.3); Red Blood Cell Count 5.36 M/mm3 (3.80-5.20); White Blood Cell Count 12.37 K/mm3 (4.00-11.30)
[2023-12-12 15:08] LABS: Albumin, Blood 3.1 g/dL (3.4-5.0); Albumin/Globulin Ratio 0.7 (0.8-1.8); Bilirubin, Total 0.3 mg/dL (0.1-1.0); Bun/Creatinine Ratio 24.8 (12.0-20.0); Creatinine, Blood 1.17 mg/dL (0.40-1.00); Globulin, Blood 4.2 g/dL (2.2-4.0); Potassium, Blood 4.6 mmol/L (3.5-5.5); Total Protein, Blood 7.3 g/dL (6.4-8.2)
[2023-12-12 15:11] VITALS: BP 106/79
== END 2023-12-12 16:31 | disposition home or self-care (01) ==
LOC: ER 14:05
PROVIDERS: Physician Assistant
DX: R09.1 Pleurisy (principal); Z88.8 Allergy status to other drugs, medicaments and biological substances; Z88.5 Allergy status to narcotic agent; Z79.899 Other long term (current) drug therapy; Z79.82 Long term (current) use of aspirin; J44.9 Chronic obstructive pulmonary disease, unspecified; E11.9 Type 2 diabetes mellitus without complications; I50.9 Heart failure, unspecified; F17.210 Nicotine dependence, cigarettes, uncomplicated
CPT/HCPCS: 71101; 80053; 85025; J1170; J1885

== ENCOUNTER → 2023-12-17 | Outpatient (CLI) | payer OTHER | LOC: LAB SHORT 16:35 → LAB 16:35 | DX: R30.0 Dysuria (principal) | CPT/HCPCS: 87086 ==

== ENCOUNTER → 2024-04-04 | Outpatient (CLI) | payer OTHER | LOC: LAB 10:16 → LAB SHORT 10:16 | DX: L03.116 Cellulitis of left lower limb (principal) | CPT/HCPCS: 87070; 87147; 87205 ==

== ENCOUNTER → 2024-05-31 | Outpatient (CLI) | payer OTHER | LOC: LAB 09:00 → LAB SHORT 09:00 | DX: L03.115 Cellulitis of right lower limb (principal); L03.116 Cellulitis of left lower limb | CPT/HCPCS: 87070; 87205 ==

== ENCOUNTER → 2024-06-21 | Outpatient (CLI) | payer OTHER | LOC: LAB 13:22 → LAB SHORT 13:22 | DX: L98.9 Disorder of the skin and subcutaneous tissue, unspecified (principal) | CPT/HCPCS: 87070; 87075; 87205 ==

== ENCOUNTER 2024-08-09 17:02 | Emergency (ER) | payer OTHER ==
[~2024-08-09] VITALS: Ht 157.5 cm; Wt 99.8 kg
[2024-08-09 17:25] VITALS: BP 133/67
[2024-08-09 18:02] LABS: BASOPHILS ABSOLUTE AUTO 0.15 K/mm3 (0.00-0.23); BASOPHILS PERCENT AUTO 1 % (0-2); EOSINOPHILS ABSOLUTE AUTO 0.43 K/mm3 (0.00-0.68); EOSINOPHILS PERCENT AUTO 3 % (0-6); Hematocrit 48.2 % (33.0-51.0); Hemoglobin 15.7 g/dL (11.5-16.0); IMMATURE GRAN ABSOLUTE AUTO 0.24 K/mm3 (0.00-0.10); IMMATURE GRAN PERCENT AUTO 2 % (0-1); LYMPHOCYTES ABSOLUTE AUTO 2.04 K/mm3 (0.84-5.20); LYMPHOCYTES PERCENT AUTO 15 % (21-46); MONOCYTES ABSOLUTE AUTO 0.86 K/mm3 (0.16-1.47); MONOCYTES PERCENT AUTO 7 % (4-13); Mean Corpuscular HGB 27.5 pg (26.0-34.0); Mean Corpuscular HGB Conc 32.6 g/dL (31.5-36.5); Mean Corpuscular Volume 85 fL (80-100); Mean Platelet Volume 9.8 fL (9.1-12.4); NEUTROPHILS ABSOLUTE AUTO 9.55 K/mm3 (1.96-9.15); NEUTROPHILS PERCENT AUTO 72 % (41-73); Platelet Count 321 K/mm3 (150-400); RDW Coefficient Variation 16.1 % (11.7-14.2); White Blood Cell Count 13.27 K/mm3 (4.00-11.30)
[2024-08-09 18:03] LABS: Base Excess Venous 7.1 mmol/L; Bicarbonate Venous 29.3 mmol/L (24.0-30.0); PCO2 Venous 47.2 mmHg (38-42); pH Blood Venous 7.43 (7.34-7.37)
[2024-08-09 18:45] LABS: Magnesium, Blood 2.1 mg/dL (1.6-2.4)
[2024-08-09 18:48] LABS: Albumin, Blood 3.4 g/dL (3.4-5.0); Albumin/Globulin Ratio 0.8 (0.8-1.8); Bilirubin, Total 0.7 mg/dL (0.1-1.0); Bun/Creatinine Ratio 11.5 (12.0-20.0); Calcium, Blood 9.3 mg/dL (8.5-10.1); Creatinine, Blood 1.04 mg/dL (0.40-1.00); Globulin, Blood 4.3 g/dL (2.2-4.0); Phosphorus, Blood 2.4 mg/dL (2.5-4.9); Potassium, Blood 4.1 mmol/L (3.5-5.5); Thyroid Stimulating Hormone 2.92 uIU/mL (0.360-4.800); Total Protein, Blood 7.7 g/dL (6.4-8.2)
[2024-08-09] MEDS ORDERED: Potassium Phosphate,Monobasic 500 MG Tablet PO ONE (19:55)
[2024-08-09] MEDS ORDERED: Ondansetron HCl 2 MG / ML 2ML Vial IV ONE (20:00)
[2024-08-09] MEDS ORDERED: ONDA4ODT MM (20:02)
[2024-08-09] MEDS ORDERED: CEPH500 PO (20:02)
== END 2024-08-09 20:10 | disposition home or self-care (01) ==
LOC: ER 17:02
PROVIDERS: Emergency Medicine
DX: E87.1 Hypo-osmolality and hyponatremia (principal); L53.9 Erythematous condition, unspecified; E11.9 Type 2 diabetes mellitus without complications; J43.9 Emphysema, unspecified; I50.9 Heart failure, unspecified; F17.210 Nicotine dependence, cigarettes, uncomplicated; Z59.89 Other problems related to housing and economic circumstances; Z88.8 Allergy status to other drugs, medicaments and biological substances; Z88.5 Allergy status to narcotic agent; Z79.51 Long term (current) use of inhaled steroids; Z79.82 Long term (current) use of aspirin; Z79.899 Other long term (current) drug therapy
CPT/HCPCS: 80053; 82803; 83605; 83735; 84100; 84443; 84484; 85025; 93005; 93010; 96374; 99284-25; A9270; J2405

== ENCOUNTER 2024-09-02 15:54 | Emergency (ER) | payer OTHER ==
[~2024-09-02] VITALS: Ht 157.5 cm; Wt 102.1 kg
[~2024-09-02 15:54] MED LIST changes: +CEPH500 PO; +ONDA4ODT MM
[2024-09-02] MEDS ORDERED: Ipratropium/Albuterol SulF 2.5-0.5MG/3 ML Amp INH ONE (16:40)
[2024-09-02] MEDS ORDERED: Albuterol 2.5 MG/3 ML VIAL INH SCH ×2 (16:40→18:10)
[2024-09-02] MEDS ORDERED: Ipratropium/Albuterol SulF 2.5-0.5MG/3 ML Amp ONE (16:47)
[2024-09-02 17:27] LABS: Base Excess Venous 5.7 mmol/L; Bicarbonate Venous 28.9 mmol/L (24.0-30.0); PCO2 Venous 42.9 mmHg (38-42); pH Blood Venous 7.45 (7.34-7.37)
[2024-09-02 17:31] LABS: BASOPHILS ABSOLUTE AUTO 0.11 K/mm3 (0.00-0.23); BASOPHILS PERCENT AUTO 1 % (0-2); EOSINOPHILS ABSOLUTE AUTO 0.64 K/mm3 (0.00-0.68); EOSINOPHILS PERCENT AUTO 6 % (0-6); IMMATURE GRAN ABSOLUTE AUTO 0.21 K/mm3 (0.00-0.10); IMMATURE GRAN PERCENT AUTO 2 % (0-1); LYMPHOCYTES ABSOLUTE AUTO 1.93 K/mm3 (0.84-5.20); LYMPHOCYTES PERCENT AUTO 17 % (21-46); MONOCYTES PERCENT AUTO 8 % (4-13); Mean Corpuscular HGB 27.4 pg (26.0-34.0); Mean Corpuscular HGB Conc 32.5 g/dL (31.5-36.5); Mean Corpuscular Volume 84 fL (80-100); Mean Platelet Volume 9.6 fL (9.1-12.4); NEUTROPHILS ABSOLUTE AUTO 7.45 K/mm3 (1.96-9.15); NEUTROPHILS PERCENT AUTO 66 % (41-73); Platelet Count 325 K/mm3 (150-400); RDW Coefficient Variation 15.5 % (11.7-14.2); RDW Standard Deviation 47.8 fL (35.1-46.3); Red Blood Cell Count 4.74 M/mm3 (3.80-5.20); White Blood Cell Count 11.24 K/mm3 (4.00-11.30)
[2024-09-02 17:45] VITALS: BP 130/63
[2024-09-02 18:02] LABS: Albumin, Blood 2.8 g/dL (3.4-5.0); Albumin/Globulin Ratio 0.8 (0.8-1.8); Bilirubin, Total 0.4 mg/dL (0.1-1.0); Bun/Creatinine Ratio 17.5 (12.0-20.0); Calcium, Blood 8.8 mg/dL (8.5-10.1); Creatinine, Blood 0.74 mg/dL (0.40-1.00); Globulin, Blood 3.4 g/dL (2.2-4.0); Magnesium, Blood 2.1 mg/dL (1.6-2.4); Potassium, Blood 3.2 mmol/L (3.5-5.5); Total Protein, Blood 6.2 g/dL (6.4-8.2)
[2024-09-02] MEDS ORDERED: MethylPREDNISolone Sod Succ 125 MG Vial IV ONE (18:10)
[2024-09-02] MEDS ORDERED: Potassium Chloride 20 MEQ TabCR PO ONE (18:10)
[2024-09-02] MEDS ORDERED: Azithromycin 250 MG Tab PO ONE (18:10)
[2024-09-02] MEDS ORDERED: PRED20 PO (18:11)
[2024-09-02] MEDS ORDERED: IPRAT-ALBUT 0.5-3 ML INH (18:11)
[2024-09-02] MEDS ORDERED: AZIT250 PO (18:11)
[2024-09-02 18:45] LABS: Influenza A, PCR NEGATIVE (NEGATIVE); Influenza B, PCR NEGATIVE (NEGATIVE); Resp Syncytial Virus, PCR NEGATIVE (NEGATIVE); SARS-Cov-2 (COVID-19) PCR, MMC NEGATIVE (NEGATIVE)
== END 2024-09-02 19:35 | disposition home or self-care (01) ==
LOC: ER 15:54
PROVIDERS: Student in an Organized Health Care Education/Training Program
DX: J44.1 Chronic obstructive pulmonary disease with (acute) exacerbation (principal); E87.5 Hyperkalemia; E87.6 Hypokalemia; E11.9 Type 2 diabetes mellitus without complications; F17.210 Nicotine dependence, cigarettes, uncomplicated; Z79.51 Long term (current) use of inhaled steroids; Z79.82 Long term (current) use of aspirin; Z79.899 Other long term (current) drug therapy; Z88.5 Allergy status to narcotic agent; Z88.8 Allergy status to other drugs, medicaments and biological substances
CPT/HCPCS: 0241U; 71046; 80053; 82803; 83735; 85025; 93005; 93010; 94644; 94645; 94664; 96374; 99285-25; A9270; J2919

== ENCOUNTER → 2024-09-05 | Outpatient (CLI) | payer OTHER ==
[~2024-09-05] MED LIST changes: +IPRAT-ALBUT 0.5-3 ML INH
[2024-09-05 09:22] LABS: Source, Urine Voided
[2024-09-05 10:44] LABS: Appearance, Urine Clear (Clear); Bilirubin, Urine Neg (Neg); Blood, Urine Neg (Neg); Color, Urine Yellow (P-Yellow); Glucose Qualitative, Urine 3+ (Neg); Ketones, Urine Neg (Neg); Leukocyte Esterase, Urine Neg (Neg); Nitrite, Urine Neg (Neg); Protein, Urine Neg (Neg); Urobilinogen, Urine NORM (Normal)
== END ==
LOC: LAB 08:45 → LAB SHORT 08:45
PROVIDERS: Hospitalist
DX: R35.0 Frequency of micturition (principal)
CPT/HCPCS: 81003

== ENCOUNTER 2024-10-05 01:15 | Day surgery (SDC) | payer OTHER | END 2024-10-05 23:00 | disposition home or self-care (01) | LOC: WOUND 01:15 | DX: E11.622 Type 2 diabetes mellitus with other skin ulcer (principal); L97.222 Non-pressure chronic ulcer of left calf with fat layer exposed; I89.0 Lymphedema, not elsewhere classified; I87.2 Venous insufficiency (chronic) (peripheral); J44.9 Chronic obstructive pulmonary disease, unspecified; I50.9 Heart failure, unspecified; I25.10 Atherosclerotic heart disease of native coronary artery without angina pectoris; F17.210 Nicotine dependence, cigarettes, uncomplicated; Z88.8 Allergy status to other drugs, medicaments and biological substances; Z88.5 Allergy status to narcotic agent | CPT/HCPCS: G0463 ==

== ENCOUNTER 2024-10-11 03:06 | Day surgery (SDC) | payer OTHER | END 2024-10-11 23:00 | disposition home or self-care (01) | LOC: WOUND 03:06 | DX: L97.222 Non-pressure chronic ulcer of left calf with fat layer exposed (principal); L97.812 Non-pressure chronic ulcer of other part of right lower leg with fat layer exposed; I89.0 Lymphedema, not elsewhere classified; I87.2 Venous insufficiency (chronic) (peripheral); J44.9 Chronic obstructive pulmonary disease, unspecified; F17.200 Nicotine dependence, unspecified, uncomplicated | CPT/HCPCS: G0463 ==

== ENCOUNTER 2024-10-29 04:20 | Day surgery (SDC) | payer OTHER ==
[~2024-10-29 04:20] MED LIST changes: +CEFEPIME HCL2 G1 IM; +Cefepime 2000 mg Vial IM SCH; +Lasix20 MG PO; +Lidocaine HCl/Pf 1% 5 ML VIAL XX SCH
[2024-10-29 11:10] VITALS: BP 125/82
--- NOTE | 2024-10-29 11:48 | NUR ---
CONTINUED TODAY WITH ATTEMPTS TO EDUCATE THE PATIENT ON MOVING INJECTION SITE TO HER THIGHS OR GLUTE. PATIENT HAD BEEN ADAMENTLY REFUSING AND REQUESTING ONLY ONE INJECTION PER DAY IN HER DELTOID. EDUCATION HAS BEEN PROVIDED DAILY SINCE INITIATION OF TREATMENT. TODAY PATIENT WAS MORE AGREEABLE TO TRY HER THIGH. PATIENT REPORTS THAT SHE WOULD LIKE TO CONTINUE WITH THE LARGER MUSCLE GROUPS TOMORROW AND "SEE HOW IT GOES". WILL REPORT THAT TO RNS WHO WILL PROVIDE INJECTION TOMORROW
[2024-10-29] MEDS ORDERED: Lidocaine HCl/Pf 1% 5 ML VIAL XX SCH (23:59)
[2024-10-29] MEDS ORDERED: Cefepime 2000 mg Vial IV SCH (23:59)
[2024-10-30] MEDS ORDERED: Nitrofurantoin100 M1 PO (11:26)
== END 2024-10-29 11:20 | disposition home or self-care (01) ==
LOC: ATC 04:20
DX: L03.115 Cellulitis of right lower limb (principal); L03.116 Cellulitis of left lower limb; J43.9 Emphysema, unspecified; E11.9 Type 2 diabetes mellitus without complications; I50.9 Heart failure, unspecified; F17.210 Nicotine dependence, cigarettes, uncomplicated; Z88.8 Allergy status to other drugs, medicaments and biological substances; Z88.5 Allergy status to narcotic agent; Z79.899 Other long term (current) drug therapy; Z79.82 Long term (current) use of aspirin
CPT/HCPCS: 96372; J0692; J2003

== ENCOUNTER 2024-10-30 04:05 | Day surgery (SDC) | payer OTHER ==
[2024-10-30 11:15] VITALS: BP 120/87
[2024-10-30] MEDS ORDERED: Nitrofurantoin100 M1 PO (11:26)
== END 2024-10-30 11:23 | disposition home or self-care (01) ==
LOC: ATC 04:05
DX: L03.90 Cellulitis, unspecified (principal); J44.9 Chronic obstructive pulmonary disease, unspecified; E11.9 Type 2 diabetes mellitus without complications; I50.9 Heart failure, unspecified; F17.210 Nicotine dependence, cigarettes, uncomplicated; Z79.2 Long term (current) use of antibiotics; Z79.52 Long term (current) use of systemic steroids; Z79.82 Long term (current) use of aspirin; Z79.899 Other long term (current) drug therapy; Z88.5 Allergy status to narcotic agent; Z88.8 Allergy status to other drugs, medicaments and biological substances
CPT/HCPCS: 96372; J0692; J2003

== ENCOUNTER 2024-10-31 04:28 | Day surgery (SDC) | payer OTHER ==
[~2024-10-31 04:28] MED LIST changes: -Cefepime 2000 mg Vial IM SCH; -Lidocaine HCl/Pf 1% 5 ML VIAL XX SCH; +Nitrofurantoin100 M1 PO
[2024-10-31] MEDS ORDERED: Cefepime 2000 mg Vial IM SCH (06:00)
[2024-10-31] MEDS ORDERED: Lidocaine HCl/Pf 1% 5 ML VIAL XX SCH (06:00)
[2024-10-31 10:15] VITALS: BP 141/87
== END 2024-10-31 10:18 | disposition home or self-care (01) ==
LOC: ATC 04:28
DX: L03.115 Cellulitis of right lower limb (principal); L03.116 Cellulitis of left lower limb; J43.9 Emphysema, unspecified; E11.9 Type 2 diabetes mellitus without complications; I50.9 Heart failure, unspecified; F17.210 Nicotine dependence, cigarettes, uncomplicated; Z88.5 Allergy status to narcotic agent; Z79.82 Long term (current) use of aspirin; Z88.8 Allergy status to other drugs, medicaments and biological substances; Z79.899 Other long term (current) drug therapy
CPT/HCPCS: 96372; J0692; J2003

== ENCOUNTER 2024-11-01 00:57 | Day surgery (SDC) | payer OTHER ==
[~2024-11-01 00:57] MED LIST changes: +Cefepime 2000 mg Vial IM SCH; +Lidocaine HCl/Pf 1% 5 ML VIAL XX SCH
[2024-11-01 11:24] VITALS: BP 123/87
== END 2024-11-01 11:26 | disposition home or self-care (01) ==
LOC: ATC 00:57
DX: L03.90 Cellulitis, unspecified (principal); J44.9 Chronic obstructive pulmonary disease, unspecified; E11.9 Type 2 diabetes mellitus without complications; I50.9 Heart failure, unspecified; F17.210 Nicotine dependence, cigarettes, uncomplicated; Z79.82 Long term (current) use of aspirin; Z79.899 Other long term (current) drug therapy; Z88.5 Allergy status to narcotic agent; Z88.8 Allergy status to other drugs, medicaments and biological substances
CPT/HCPCS: 96372; J0692; J2003

== ENCOUNTER 2024-11-03 01:06 | Day surgery (SDC) | payer OTHER ==
[~2024-11-03 01:06] MED LIST changes: -Cefepime 2000 mg Vial IM SCH; -Lidocaine HCl/Pf 1% 5 ML VIAL XX SCH
[2024-11-03] MEDS ORDERED: Cefepime 2000 mg Vial IM SCH (06:00)
[2024-11-03] MEDS ORDERED: Lidocaine HCl/Pf 1% 5 ML VIAL XX SCH (06:00)
[2024-11-03 11:18] VITALS: BP 95/63
== END 2024-11-03 11:30 | disposition home or self-care (01) ==
LOC: ATC 01:06
DX: L03.90 Cellulitis, unspecified (principal); J44.9 Chronic obstructive pulmonary disease, unspecified; E11.9 Type 2 diabetes mellitus without complications; I50.9 Heart failure, unspecified; F17.210 Nicotine dependence, cigarettes, uncomplicated; Z79.2 Long term (current) use of antibiotics; Z79.52 Long term (current) use of systemic steroids; Z79.82 Long term (current) use of aspirin; Z79.899 Other long term (current) drug therapy; Z88.5 Allergy status to narcotic agent; Z88.8 Allergy status to other drugs, medicaments and biological substances; I89.0 Lymphedema, not elsewhere classified; L97.222 Non-pressure chronic ulcer of left calf with fat layer exposed; I87.2 Venous insufficiency (chronic) (peripheral); L03.115 Cellulitis of right lower limb; L97.812 Non-pressure chronic ulcer of other part of right lower leg with fat layer exposed; L97.822 Non-pressure chronic ulcer of other part of left lower leg with fat layer exposed
CPT/HCPCS: 96372; G0463; J0692; J2003

== ENCOUNTER 2024-11-04 02:28 | Day surgery (SDC) | payer OTHER ==
[2024-11-04] MEDS ORDERED: Cefepime 2000 mg Vial IM SCH (06:00)
[2024-11-04] MEDS ORDERED: LIDOCAINE HCL 1% IV SCH (07:15)
[2024-11-04] MEDS ORDERED: Lidocaine HCl/Pf 1% 5 ML VIAL XX SCH (07:25)
== END 2024-11-04 11:18 | disposition home or self-care (01) ==
LOC: ATC 02:28
DX: L03.115 Cellulitis of right lower limb (principal); L03.116 Cellulitis of left lower limb; J43.9 Emphysema, unspecified; E11.9 Type 2 diabetes mellitus without complications; I50.9 Heart failure, unspecified; Z88.8 Allergy status to other drugs, medicaments and biological substances; Z88.5 Allergy status to narcotic agent; Z79.82 Long term (current) use of aspirin; Z79.899 Other long term (current) drug therapy; F17.210 Nicotine dependence, cigarettes, uncomplicated
CPT/HCPCS: 96372; J0692; J2003

== ENCOUNTER → 2024-11-30 | Outpatient (CLI) | payer OTHER | END | disposition home or self-care (01) | LOC: LAB SHORT 17:47 → LAB 17:47 | DX: N39.0 Urinary tract infection, site not specified (principal) | CPT/HCPCS: 87086 ==

== ENCOUNTER 2024-12-07 01:40 | Day surgery (SDC) | payer OTHER ==
[2024-12-07] MEDS ORDERED: Miconazole Nitrate 2% 85 GM PWD ONE (10:02)
== END 2024-12-07 23:00 | disposition home or self-care (01) ==
LOC: WOUND 01:40
DX: L97.222 Non-pressure chronic ulcer of left calf with fat layer exposed (principal); L97.212 Non-pressure chronic ulcer of right calf with fat layer exposed; I89.0 Lymphedema, not elsewhere classified; I87.2 Venous insufficiency (chronic) (peripheral); J44.9 Chronic obstructive pulmonary disease, unspecified; F17.200 Nicotine dependence, unspecified, uncomplicated
CPT/HCPCS: A9270; G0463

== ENCOUNTER 2024-12-11 08:48 | Emergency (ER) | payer OTHER ==
[~2024-12-11] VITALS: Ht 157.5 cm; Wt 139.2 kg
[2024-12-11 09:16] LABS: Source, Urine Straight Cath
[2024-12-11 09:20] LABS: Bilirubin, Urine Neg (Neg); Color, Urine Yellow (P-Yellow); Glucose Qualitative, Urine Neg (Neg); Ketones, Urine Neg (Neg); Leukocyte Esterase, Urine Neg (Neg); Protein, Urine 2+ (Neg); Specific Gravity, Urine 1.025 (1.003-1.022); Urobilinogen, Urine 1+ (Normal)
[2024-12-11 09:31] LABS: White Blood Cells, Urine 0-2 /hpf (0-5)
[2024-12-11 09:34] LABS: BASOPHILS ABSOLUTE AUTO 0.13 K/mm3 (0.00-0.23); BASOPHILS PERCENT AUTO 1 % (0-2); EOSINOPHILS ABSOLUTE AUTO 0.63 K/mm3 (0.00-0.68); EOSINOPHILS PERCENT AUTO 6 % (0-6); Hematocrit 42.2 % (33.0-51.0); Hemoglobin 13.4 g/dL (11.5-16.0); IMMATURE GRAN ABSOLUTE AUTO 0.19 K/mm3 (0.00-0.10); IMMATURE GRAN PERCENT AUTO 2 % (0-1); LYMPHOCYTES ABSOLUTE AUTO 2.39 K/mm3 (0.84-5.20); LYMPHOCYTES PERCENT AUTO 24 % (21-46); MONOCYTES ABSOLUTE AUTO 0.92 K/mm3 (0.16-1.47); MONOCYTES PERCENT AUTO 9 % (4-13); Mean Corpuscular HGB Conc 31.8 g/dL (31.5-36.5); Mean Corpuscular Volume 85 fL (80-100); NEUTROPHILS ABSOLUTE AUTO 5.74 K/mm3 (1.96-9.15); NEUTROPHILS PERCENT AUTO 57 % (41-73); NRBC ABSOLUTE 0.00 K/mm3 (0.00-0.02); NRBC Auto 0.0 /100 WBC (0.0-0.2); Platelet Count 379 K/mm3 (150-400); RDW Coefficient Variation 16.6 % (11.7-14.2); RDW Standard Deviation 50.8 fL (35.1-46.3)
[2024-12-11 10:06] LABS: Alanine Aminotransfer (ALT/SGP 19.0 U/L (12-78); Albumin, Blood 2.7 g/dL (3.4-5.0); Albumin/Globulin Ratio 0.7 (0.8-1.8); Anion Gap 6.0 mmol/L (3-11); Aspartate Aminotrans (AST/SGOT 12.0 U/L (12-37); Bilirubin, Total 0.2 mg/dL (0.1-1.0); Blood Urea Nitrogen 11.0 mg/dL (8-24); CO2, Blood 29.0 mmol/L (21-32); Calcium, Blood 8.6 mg/dL (8.5-10.1); Chloride, Blood 106.0 mmol/L (98-108); Creatinine, Blood 0.96 mg/dL (0.40-1.00); Globulin, Blood 4.0 g/dL (2.2-4.0); Glucose, Blood 115.0 mg/dL (70-99); Potassium, Blood 4.2 mmol/L (3.5-5.5); Sodium, Blood 137.0 mmol/L (136-145); Total Protein, Blood 6.7 g/dL (6.4-8.2)
[2024-12-11] MEDS ORDERED: METR500 PO (10:39)
[2024-12-11 11:27] VITALS: BP 129/76
== END 2024-12-11 11:28 | disposition home or self-care (01) ==
LOC: ER 08:48
PROVIDERS: Student in an Organized Health Care Education/Training Program
DX: N76.0 Acute vaginitis (principal); N93.9 Abnormal uterine and vaginal bleeding, unspecified; J43.9 Emphysema, unspecified; E11.9 Type 2 diabetes mellitus without complications; I50.9 Heart failure, unspecified; F17.210 Nicotine dependence, cigarettes, uncomplicated; Z88.8 Allergy status to other drugs, medicaments and biological substances; Z88.5 Allergy status to narcotic agent; Z79.51 Long term (current) use of inhaled steroids; Z79.82 Long term (current) use of aspirin; Z79.52 Long term (current) use of systemic steroids; Z79.899 Other long term (current) drug therapy
CPT/HCPCS: 80053; 81001; 85025; 99284; P9612

== ENCOUNTER 2024-12-15 05:51 | Day surgery (SDC) | payer OTHER ==
[~2024-12-15 05:51] MED LIST changes: +METR500 PO
[2024-12-15] MEDS ORDERED: Miconazole Nitrate 2% 85 GM PWD ONE (09:45)
== END 2024-12-15 23:00 | disposition home or self-care (01) ==
LOC: WOUND 05:51
DX: L97.222 Non-pressure chronic ulcer of left calf with fat layer exposed (principal); L97.212 Non-pressure chronic ulcer of right calf with fat layer exposed; I89.0 Lymphedema, not elsewhere classified; I87.2 Venous insufficiency (chronic) (peripheral); J44.9 Chronic obstructive pulmonary disease, unspecified; Z88.5 Allergy status to narcotic agent; Z88.8 Allergy status to other drugs, medicaments and biological substances
CPT/HCPCS: A9270; G0463

== ENCOUNTER 2024-12-29 04:04 | Day surgery (SDC) | payer OTHER | END 2024-12-29 23:00 | disposition home or self-care (01) | LOC: WOUND 04:04 | DX: I89.0 Lymphedema, not elsewhere classified (principal); L97.222 Non-pressure chronic ulcer of left calf with fat layer exposed; L97.212 Non-pressure chronic ulcer of right calf with fat layer exposed; I87.2 Venous insufficiency (chronic) (peripheral); L03.115 Cellulitis of right lower limb; J44.9 Chronic obstructive pulmonary disease, unspecified | CPT/HCPCS: G0463 ==

== ENCOUNTER 2025-01-19 00:33 | Day surgery (SDC) | payer OTHER ==
[2025-01-19] MEDS ORDERED: Miconazole Nitrate 2% 85 GM PWD ONE (10:21)
== END 2025-01-19 23:00 | disposition home or self-care (01) ==
LOC: WOUND 00:33
DX: I89.0 Lymphedema, not elsewhere classified (principal); L97.222 Non-pressure chronic ulcer of left calf with fat layer exposed; L97.212 Non-pressure chronic ulcer of right calf with fat layer exposed; I87.2 Venous insufficiency (chronic) (peripheral); G62.9 Polyneuropathy, unspecified; F17.200 Nicotine dependence, unspecified, uncomplicated
CPT/HCPCS: A9270; G0463

== ENCOUNTER 2025-02-02 01:48 | Day surgery (SDC) | payer OTHER ==
[2025-02-02] MEDS ORDERED: Lidocaine HCl 4% Cream 5 GM ONE (09:32)
[2025-02-02] MEDS ORDERED: Miconazole Nitrate 2% 85 GM PWD ONE (09:37)
== END 2025-02-02 23:00 | disposition home or self-care (01) ==
LOC: WOUND 01:48
DX: I89.0 Lymphedema, not elsewhere classified (principal); I87.2 Venous insufficiency (chronic) (peripheral); J44.9 Chronic obstructive pulmonary disease, unspecified; F17.200 Nicotine dependence, unspecified, uncomplicated
CPT/HCPCS: A9270; G0463

== ENCOUNTER 2025-02-23 00:41 | Day surgery (SDC) | payer OTHER | END 2025-02-23 23:00 | disposition home or self-care (01) | LOC: WOUND 00:41 | DX: I89.0 Lymphedema, not elsewhere classified (principal); I87.2 Venous insufficiency (chronic) (peripheral); J44.9 Chronic obstructive pulmonary disease, unspecified; L03.115 Cellulitis of right lower limb; F17.200 Nicotine dependence, unspecified, uncomplicated; Z87.828 Personal history of other (healed) physical injury and trauma | CPT/HCPCS: G0463 ==

== ENCOUNTER 2025-05-13 14:01 | Emergency (ER) | payer OTHER ==
[~2025-05-13] VITALS: Ht 157.5 cm; Wt 138.3 kg
[2025-05-13 14:02] VITALS: BP 119/92
[2025-05-13 15:59] LABS: BASOPHILS ABSOLUTE AUTO 0.10 K/mm3 (0.00-0.23); BASOPHILS PERCENT AUTO 1 % (0-2); EOSINOPHILS ABSOLUTE AUTO 0.68 K/mm3 (0.00-0.68); EOSINOPHILS PERCENT AUTO 6 % (0-6); Hematocrit 51.8 % (33.0-51.0); Hemoglobin 16.4 g/dL (11.5-16.0); IMMATURE GRAN ABSOLUTE AUTO 0.08 K/mm3 (0.00-0.10); IMMATURE GRAN PERCENT AUTO 1 % (0-1); LYMPHOCYTES ABSOLUTE AUTO 2.09 K/mm3 (0.84-5.20); LYMPHOCYTES PERCENT AUTO 19 % (21-46); MONOCYTES ABSOLUTE AUTO 0.74 K/mm3 (0.16-1.47); MONOCYTES PERCENT AUTO 7 % (4-13); Mean Corpuscular HGB Conc 31.7 g/dL (31.5-36.5); Mean Corpuscular Volume 83 fL (80-100); NEUTROPHILS ABSOLUTE AUTO 7.36 K/mm3 (1.96-9.15); NEUTROPHILS PERCENT AUTO 67 % (41-73); NRBC ABSOLUTE 0.00 K/mm3 (0.00-0.02); NRBC Auto 0.0 /100 WBC (0.0-0.2); Platelet Count 289 K/mm3 (150-400); RDW Coefficient Variation 15.7 % (11.7-14.2); RDW Standard Deviation 46.6 fL (35.1-46.3)
[2025-05-13 16:18] LABS: Alanine Aminotransfer (ALT/SGP 18.0 U/L (12-78); Albumin, Blood 3.6 g/dL (3.4-5.0); Albumin/Globulin Ratio 0.8 (0.8-1.8); Anion Gap 7.0 mmol/L (3-11); Aspartate Aminotrans (AST/SGOT 10.0 U/L (12-37); Bilirubin, Total 1.2 mg/dL (0.1-1.0); Blood Urea Nitrogen 9.0 mg/dL (8-24); CO2, Blood 33.0 mmol/L (21-32); Calcium, Blood 9.0 mg/dL (8.5-10.1); Chloride, Blood 98.0 mmol/L (98-108); Creatinine, Blood 0.83 mg/dL (0.40-1.00); Globulin, Blood 4.4 g/dL (2.2-4.0); Glucose, Blood 122.0 mg/dL (70-99); Potassium, Blood 3.4 mmol/L (3.5-5.5); Sodium, Blood 135.0 mmol/L (136-145); Total Protein, Blood 8.0 g/dL (6.4-8.2)
[2025-05-13] MEDS ORDERED: CEPH500 PO (20:14)
== END 2025-05-13 20:38 | disposition home or self-care (01) ==
LOC: ER 14:01
PROVIDERS: Physician Assistant
DX: I89.0 Lymphedema, not elsewhere classified (principal); I89.8 Other specified noninfective disorders of lymphatic vessels and lymph nodes; J43.9 Emphysema, unspecified; E11.9 Type 2 diabetes mellitus without complications; I50.9 Heart failure, unspecified; F17.210 Nicotine dependence, cigarettes, uncomplicated; Z88.8 Allergy status to other drugs, medicaments and biological substances; Z88.5 Allergy status to narcotic agent; Z79.82 Long term (current) use of aspirin; Z79.51 Long term (current) use of inhaled steroids; Z79.899 Other long term (current) drug therapy
CPT/HCPCS: 80053; 85025; A9270